=== PATIENT | male | born 1940 | race Caucasian/White ===

== ENCOUNTER 2017-01-30 12:04 | Inpatient (IN) | payer OTHER ==
[~2017-01-30] VITALS: Ht 170.2 cm; Wt 111.6 kg
[~2017-01-30 12:04] MED LIST: ADVIL200 MG PO; ASPIR 8181 M1 PO; ATORVASTATIN CA20 MG PO; CELEBREX200 MG PO; CELECOXIB200 MG PO; COUMADIN1 MG PO; CYANOCOBALAM1000 MCG PO; CYCLOBENZAPRINE10 MG PO; DOCUSATE SODIU100 MG PO; EFFEXOR75 MG PO; ENDOCET 5-3251 EACH PO; FERROUS SULFAT325 MG PO; FLONASE16 G1 BOTH NARES; HYDROCHLOROTHIA25 MG PO; HYDROCODON-ACE1 EAC7 PO; LOVENOX40 MG/0.4 SC; METFORMIN HCL500 MG PO; MULTI-BETIC TA1 EACH PO; PRINIVIL5 MG PO; PROTONIX40 MG PO; THORAZINE25 MG PO; TYLENOL ARTHRI650 MG PO; ULTRAM50 MG PO; VITAMIN B12-FO1 EACH PO; ZANTAC75 M1 PO
[2017-01-30 13:00] LABS: HEMATOCRIT 45.8 % (38.0-50.0); MCH 30.4 PG (29.0-34.0); MCHC 33.6 G/DL (30.0-36.0); MCV 90.5 FL (86-99); MEAN PLAT.VOLUME 12.7 uM^3 (9.0-12.4); PLATELET COUNT 265 K/uL (156-360); RBC DIS.WIDTH-CV 13.5 % (11.8-14.6); RBC DIS.WIDTH-SD 45.3 % (39-53); RED BLOOD COUNT 5.06 M/uL (4.00-5.50); WHITE BLOOD COUNT 9.7 K/uL (4.1-10.2)
[2017-01-30 13:14] LABS: CHLORIDE 106 mEq/L (99-109); POTASSIUM 5.8 mEq/L (3.7-5.4); SODIUM 136 mEq/L (136-147)
[2017-01-30 13:15] LABS: GLUCOSE 120 mg/dL (70-99)
[2017-01-30 13:17] LABS: ANION GAP 13 MEQ/L (2-14)
[2017-01-30 13:19] LABS: GFR ESTIMATE (CALCULATED) 7 mL/min/
[2017-01-30 13:20] LABS: UREA NITROGEN (BUN) 85 mg/dL (9-23)
[2017-01-30 13:21] LABS: TROP-I INTERPRETATION NEGATIVE; TROPONIN-I < 0.01 ng/mL (0.0-0.30)
[2017-01-30] MEDS ORDERED: PRINIVIL20 MG PO (16:35)
[2017-01-30] MEDS ORDERED: DAILY VITAMIN1 EAC4 PO (16:36)
[2017-01-30 18:42] VITALS: BP 132/63
[2017-01-30 19:39] VITALS: BP 158/71
[2017-01-30 21:32] LABS: URIC ACID 13.4 mg/dL (3.1-9.2)
[2017-01-30 21:33] LABS: CREATINE KINASE 777 IU/L (1-294)
[2017-01-30 22:35] LABS: ADD MIUA? YES; BILIRUBIN NEGATIVE; BLOOD SMALL; COLOR YELLOW ((YELLOW)); GLUCOSE (STRIP) NEGATIVE; KETONES NEGATIVE; LEUKOCYTES NEGATIVE; NITRITE NEGATIVE; PROTEIN (STRIP) NEGATIVE; UROBILINOGEN 0.2 MG/DL (0.2-1.0)
[2017-01-30 22:41] LABS: BACTERIA RARE /HPF; EPITHELIAL CELLS NONE SEEN /HPF; HYALINE CASTS 0-5 /LPF; MUCUS TRACE /LPF; RED BLOOD CELLS 0-5 /HPF (0-5); WHITE BLOOD CELLS 0-5 /HPF (0-5)
[2017-01-30 22:49] LABS: UR CREATININE CONCENTRATION 115.6 MG/DL
[2017-01-30 23:31] VITALS: BP 140/62
[2017-01-31 03:59] VITALS: BP 126/60
[2017-01-31 06:19] LABS: ALKALINE PHOSPHATASE 37 IU/L (3-129); ANION GAP 8 MEQ/L (2-14); CHLORIDE 115 MEQ/L (99-109); CREATINE KINASE 446 IU/L (1-294); GLUCOSE 98 mg/dL (70-99); POTASSIUM 5.2 MEQ/L (3.7-5.4); SAMPLE HEMOLYSIS CHECK 0; SAMPLE ICTERIC CHECK 0; SAMPLE LIPEMIA CHECK 0; TOTAL BILIRUBIN 0.4 MG/DL (0.0-1.0); UREA NITROGEN (BUN) 69 mg/dL (9-23)
[2017-01-31 06:20] LABS: GFR ESTIMATE (CALCULATED) 17 mL/min/; SODIUM 143 MEQ/L (136-147)
[2017-01-31 07:42] VITALS: BP 137/65
[2017-01-31 11:42] VITALS: BP 152/70
[2017-01-31 15:58] VITALS: BP 156/70
[2017-01-31 17:09] LABS: POINT-OF-CARE METER ID UU14174225
[2017-01-31 21:29] VITALS: BP 172/74
[2017-01-31 23:47] VITALS: BP 139/65
[2017-02-01 03:47] VITALS: BP 144/66
[2017-02-01 06:55] LABS: ANION GAP 7 MEQ/L (2-14); CHLORIDE 115 MEQ/L (99-109); CREATINE KINASE 271 IU/L (1-294); GFR ESTIMATE (CALCULATED) 48 mL/min/; GLUCOSE 95 mg/dL (70-99); POTASSIUM 5.1 MEQ/L (3.7-5.4); SAMPLE HEMOLYSIS CHECK 0; SAMPLE ICTERIC CHECK 0; SAMPLE LIPEMIA CHECK 0; SODIUM 144 MEQ/L (136-147); UREA NITROGEN (BUN) 38 mg/dL (9-23)
[2017-02-01 07:50] VITALS: BP 196/84
[2017-02-01 08:15] LABS: POINT-OF-CARE METER ID UU14174225
[2017-02-01 08:21] VITALS: BP 160/72
[2017-02-01 11:26] VITALS: BP 165/77
[2017-02-01 11:57] LABS: POINT-OF-CARE METER ID UU14174225
[2017-02-01] MEDS ORDERED: AMLODIPINE BESYL5 MG PO (13:17)
== END 2017-02-01 13:55 | disposition home or self-care (01) | DRG 683 ==
LOC: EME 12:04 → EDOF 15:52 → 5SOUTH 16:58
PROVIDERS: Internal Medicine; Student in an Organized Health Care Education/Training Program
DX: N17.9 Acute kidney failure, unspecified (principal); E86.0 Dehydration; E87.5 Hyperkalemia; E87.2 Acidosis; A08.4 Viral intestinal infection, unspecified; E11.9 Type 2 diabetes mellitus without complications; E78.5 Hyperlipidemia, unspecified; F32.9 Major depressive disorder, single episode, unspecified; I10 Essential (primary) hypertension; K21.9 Gastro-esophageal reflux disease without esophagitis; Z79.84 Long term (current) use of oral hypoglycemic drugs; Z87.891 Personal history of nicotine dependence
CPT/HCPCS: 71020; 74176; 80048; 80053; 81003; 82436; 82550; 82570; 82948; 84100; 84156; 84300; 84484; 84550; 85027; 87493; 93005; 99281; 99285; J1644; J1815; J7030; J7120